=== PATIENT | male | born 1985 | race Caucasian/White ===

== ENCOUNTER 2021-07-12 18:06 | Emergency (ER) | payer MEDICAID ==
[~2021-07-12] VITALS: Ht 185.4 cm; Wt 91.0 kg
[2021-07-12] MEDS ORDERED: MUPI15CR11 TP (23:46)
[2021-07-13 00:21] VITALS: BP 135/82
== END 2021-07-13 00:22 | disposition home or self-care (01) ==
LOC: ER 18:06
DX: L01.00 Impetigo, unspecified (principal); H91.90 Unspecified hearing loss, unspecified ear
CPT/HCPCS: 99281